=== PATIENT | male | born 2000 | race African-American/Black ===

== ENCOUNTER → 2021-02-27 | Outpatient (CLI) | payer OTHER | LOC: SLEEP 20:04 | PROVIDERS: ATTEND Internal Medicine Critical Care Medicine | DX: G47.9 Sleep disorder, unspecified (principal); G40.802 Other epilepsy, not intractable, without status epilepticus; Z20.822 Contact with and (suspected) exposure to COVID-19 | CPT/HCPCS: 95810; U0002 ==